=== PATIENT | female | born 1980 | race Asian ===

== ENCOUNTER → 2021-12-24 | Outpatient (CLI) | payer BC | LOC: DIA.ED 09:28 | DX: O24.419 Gestational diabetes mellitus in pregnancy, unspecified control (principal); Z79.84 Long term (current) use of oral hypoglycemic drugs | CPT/HCPCS: G0108 ==

== ENCOUNTER 2022-01-13 15:37 | Inpatient (IN) | payer BC ==
[~2022-01-13] VITALS: Ht 165.1 cm; Wt 71.8 kg
[2022-01-13] VITALS (21 sets, daily range): BP systolic 83–141; BP diastolic 31–74; PULSE 56–81; TEMP 97.7–98.3
[2022-01-13] MEDS ORDERED: CLEOCIN HCL300 MG PO (16:22)
[2022-01-13] MEDS ORDERED: PRENATAL (16:23)
[2022-01-13] MEDS ORDERED: GLUCOPHAGE500 MG/TAB PO (16:23)
[2022-01-13 16:27] LABS: COLLECTION METHOD CLEAN CATCH
[2022-01-13 16:34] LABS: MUCOUS Present (NOT PRESENT); PH 6 (5-8); URINE APPEARANCE Hazy (CLEAR/HAZY); URINE BACTERIA None Seen /hpf (NONE SEEN); URINE BILIRUBIN Negative (NEGATIVE); URINE BLOOD Negative (NEGATIVE); URINE COLOR Yellow (YELLOW); URINE GLUCOSE Negative (NEGATIVE); URINE KETONE Negative (NEGATIVE); URINE LEUKOCYTE ESTERASE Negative (NEGATIVE); URINE NITRATE Negative (NEGATIVE); URINE PROTEIN(semi-quant) Negative (NEGATIVE); URINE RBC 0-2 /hpf (0-2); URINE UROBILINOGEN Negative (NEGATIVE); URINE WBC 0-2 /hpf (0-2)
[2022-01-13 16:35] LABS: BASO % 0.2 % (0.0-2.0); EOS # 0.1 K/mm3 (0.0-0.7); EOS % 2.1 % (0.0-4.0); GRAN # 2.6 K/mm3 (1.4-6.5); HEMOGLOBIN 12.6 g/dl (12.5-16.0); LYMPH # 1.4 K/mm3 (1.2-3.4); LYMPH % 31.4 % (20.0-51.0); MEAN CELL VOLUME 85 fl (80.0-100.0); MEAN CORPUSCULAR HEMOGLOBIN 29 pg (27-31); MEAN CORPUSCULAR HGB CONC 34 g/dl (33.0-37.0); MEAN PLATELET VOLUME 11.5 fl (7.4-10.4); MONO # 0.2 K/mm3 (0.1-0.6); MONO % 4.6 % (1.7-9.3); PLATELET COUNT 203 K/mm3 (130-400); RED BLOOD COUNT 4.37 M/mm3 (4.10-5.30); REDCELL DISTRIBUTION WIDTH-CV 15.3 % (11.5-14.5)
[2022-01-13 17:00] LABS: ALBUMIN 2.8 gm/dL (3.5-5.0); BILIRUBIN,TOTAL 0.2 mg/dL (0.2-1.2); CALCIUM 8.7 mg/dL (8.4-10.2); CREATININE, serum 0.59 mg/dL (0.57-1.11); POTASSIUM 3.7 mmol/L (3.5-4.5); TOTAL PROTEIN 6.5 gm/dL (6.2-8.1)
[2022-01-14] VITALS: BP 109/57; PULSE 68
[2022-01-14 03:33] VITALS: BP 107/66; PULSE 78; TEMP 98.7
[2022-01-14 05:51] LABS: HEMATOCRIT 37.8 % (37.0-47.0); HEMOGLOBIN 12.6 g/dl (12.5-16.0)
[2022-01-14 08:46] VITALS: BP 118/76; PULSE 85; TEMP 97.7
[2022-01-14] MEDS ORDERED: IBU600 MG PO (09:47)
[2022-01-14] MEDS ORDERED: PERCOCET 325 MG1 TA2 PO (09:47)
[2022-01-14 14:20] VITALS: BP 118/71; PULSE 82; TEMP 97.3
[2022-01-14 16:15] VITALS: BP 106/60; PULSE 73; TEMP 97.1
[2022-01-14 19:51] VITALS: BP 107/65; PULSE 84; TEMP 98.2
[2022-01-15 08:25] VITALS: BP 105/67; PULSE 94; TEMP 97.9
[2022-01-15 16:09] VITALS: BP 102/63; PULSE 85; TEMP 98.4
[2022-01-15 19:00] VITALS: BP 106/70; PULSE 80; TEMP 97.8
[2022-01-16 09:00] VITALS: BP 110/66; PULSE 80; TEMP 97.6
== END 2022-01-16 18:00 | disposition home or self-care (01) | DRG 788 ==
LOC: LDRO 15:37 → OB 19:12
PROVIDERS: ADMIT Obstetrics & Gynecology
PROC: 10D00Z1 Extraction of Products of Conception, Low, Open Approach (ICD-10-PCS; principal; 2022-01-13)
DX: O36.5130 Maternal care for known or suspected placental insufficiency, third trimester, not applicable or unspecified (principal); O77.0 Labor and delivery complicated by meconium in amniotic fluid; O34.13 Maternal care for benign tumor of corpus uteri, third trimester; O34.211 Maternal care for low transverse scar from previous cesarean delivery; O24.425 Gestational diabetes mellitus in childbirth, controlled by oral hypoglycemic drugs; D25.9 Leiomyoma of uterus, unspecified; O26.893 Other specified pregnancy related conditions, third trimester; L29.9 Pruritus, unspecified; Z3A.38 38 weeks gestation of pregnancy; Z37.0 Single live birth
CPT/HCPCS: J0690; J1885; J2370; J2405; J2590; J3010; J7120